=== PATIENT | male | born 1950 | race Caucasian/White ===

== ENCOUNTER → 2018-10-10 | Outpatient (CLI) | payer MEDICARE, OTHER | LOC: M RAD 16:27 | DX: M51.26 Other intervertebral disc displacement, lumbar region (principal); M51.27 Other intervertebral disc displacement, lumbosacral region; M48.061 Spinal stenosis, lumbar region without neurogenic claudication | CPT/HCPCS: 72131 ==

== ENCOUNTER → 2021-07-21 | Outpatient (REF) | payer MEDICARE, OTHER ==
[2021-07-21 18:04] LABS: INR 2.56; PROTHROMBIN TIME 27.9 SECONDS (12.7-14.5)
== END ==
LOC: M LAB REF 16:15
PROVIDERS: ATTEND Internal Medicine
DX: Z79.01 Long term (current) use of anticoagulants (principal); I25.3 Aneurysm of heart

== ENCOUNTER 2021-09-15 12:43 | Outpatient (RCR) | payer MEDICARE, OTHER | END 2021-09-21 | LOC: M ST 12:43 | PROVIDERS: ATTEND Internal Medicine | DX: R13.10 Dysphagia, unspecified (principal) ==

== ENCOUNTER → 2021-10-10 | Outpatient (CLI) | payer MEDICARE, OTHER ==
[~2021-10-10] MED LIST: BARIUM SULFATE 700 MG TABLET (E-Z-DISK) As Ordered ONE; E-Z-PAQUE 96% w/w SUSP 176GM BTL As Ordered ONE; VARIBAR NECTAR 40% w/v 240ML SUSP BTL As Ordered ONE; VARIBAR PUDDING 40% w/v 230ML TUBE As Ordered ONE
--- NOTE | 2021-10-10 13:46 | REP ---
INDICATION: DYSPHGIA. UNSPECIFIED. COMPARISON: None. TECHNIQUE: The procedure was performed by BEHZAD Gallegos, under the direct supervision of Dr. Begum. The procedure was performed with Darlene Sommer and Alisia Andrade from speech pathology present. 5 ml aliquots of thin and nectar consistency barium was administered. FINDINGS: The patient was able to successfully swallow both consistencies of barium. Penetration without aspiration was seen on both consistencies. The detailed report of this examination will be provided by speech pathology. IMPRESSION: Penetration without aspiration was seen on both consistencies of barium were swallowed during this examination. Please see detailed report from speech pathology for further evaluation. 1.1 minutes of fluoroscopy time was utilized for this procedure. Some fluoroscopic images are performed with last image hold technology. These images require no additional radiation <Electronically signed by Shante Weber > 10/10/21 1315 <Electronically signed by Devon Begum > 10/10/21 [id number]
== END ==
LOC: M RAD 11:11
PROVIDERS: ATTEND Internal Medicine
DX: R13.12 Dysphagia, oropharyngeal phase (principal)

== ENCOUNTER 2021-10-20 10:34 | Outpatient (RCR) | payer MEDICARE, OTHER | END 2021-10-21 | LOC: M PT 10:34 | PROVIDERS: ATTEND Internal Medicine | DX: M54.2 Cervicalgia (principal) ==

== ENCOUNTER → 2021-11-21 | Outpatient (RCR) | payer MEDICARE, OTHER | LOC: M PT 10-29 09:55 → M ST 10-31 10:29 → M PT 10-31 10:29 → M ST 11-07 10:32 → M PT 11-11 10:00 → M ST 11-12 15:00 → M PT 11-13 13:30 → M ST 12:45 | PROVIDERS: ATTEND Internal Medicine | DX: M54.2 Cervicalgia (principal) ==

== ENCOUNTER 2021-12-19 10:07 | Outpatient (RCR) | payer MEDICARE, OTHER | END 2021-12-22 | LOC: M PT 10:07 | PROVIDERS: ATTEND Internal Medicine | DX: M54.2 Cervicalgia (principal) ==

== ENCOUNTER 2022-01-08 12:00 | Outpatient (RCR) | payer MEDICARE, OTHER | END 2022-01-19 | LOC: M ST 12:00 | PROVIDERS: ATTEND Internal Medicine | DX: M54.2 Cervicalgia (principal) ==

== ENCOUNTER → 2022-01-19 | Outpatient (CLI) | payer MEDICARE, OTHER | LOC: M RAD 10:57 | PROVIDERS: ATTEND Internal Medicine | DX: R13.12 Dysphagia, oropharyngeal phase (principal) ==

== ENCOUNTER 2022-01-22 12:09 | Outpatient (RCR) | payer MEDICARE, OTHER | END 2022-02-19 | LOC: M ST 12:09 | PROVIDERS: ATTEND Internal Medicine | DX: M54.2 Cervicalgia (principal) ==

== ENCOUNTER → 2022-03-13 | Outpatient (CLI) | payer MEDICARE, OTHER ==
[2022-03-13 10:16] LABS: INR 1.18; PROTHROMBIN TIME 15.4 SECONDS (12.7-14.5)
[2022-03-13 10:17] LABS: PARTIAL THROMBOPLASTIN TIME 33.1 SECONDS (25.9-37.0)
[2022-03-13 10:34] LABS: ALBUMIN 3.8 GM/DL (3.2-5.2); ALT/SGPT 359 U/L (12-78); BILIRUBIN,DIRECT 0.2 MG/DL (0.0-0.2); BILIRUBIN,TOTAL 0.5 MG/DL (0.2-1.0); FERRITIN 349 NG/ML (26-388); IRON (FE) 79 UG/DL (65-175); PERCENT SATURATION 20.8 % (19.7-50.0); TOTAL IRON BINDING CAPACITY 380 UG/DL (250-450)
[2022-03-13 10:35] LABS: HEPATITIS B SURFACE ANTIBODY NEGATIVE (POSITIVE)
[2022-03-13 10:46] LABS: HEPATITIS B SURFACE ANTIGEN NEGATIVE (NEGATIVE)
[2022-03-13 11:14] LABS: HEPATITIS C VIRUS ABY INDEX 0.1 INDEX (<0.8)
[2022-03-14 19:11] LABS: ALPHA 1 ANTITRYPSIN 181 mg/dL (101-187); ANTI-MITOCHONDRIAL ANTIBODY <20.0 Units (0.0-20.0); ANTINUCLEAR ANTIBODIES DIRECT Negative (Negative); CERULOPLASMIN 27.3 mg/dL (16.0-31.0); HEPATITIS A IgG TOTAL Positive (Negative); LIVER-KIDNEY MICROSOMAL ABY <20.1 Units (0.0-20.0); TISSUE TRANSGLUTAMINASE IgA <2 U/mL (0-3)
== END ==
LOC: M RAD 08:40
PROVIDERS: ATTEND Nurse Practitioner Family
DX: R94.5 Abnormal results of liver function studies (principal); Z79.899 Other long term (current) drug therapy

== ENCOUNTER → 2022-03-27 | Outpatient (CLI) | payer MEDICARE, OTHER ==
[2022-03-27 14:08] LABS: ALBUMIN 3.6 GM/DL (3.2-5.2); BILIRUBIN,DIRECT 0.2 MG/DL (0.0-0.2); BILIRUBIN,TOTAL 0.4 MG/DL (0.2-1.0); TOTAL PROTEIN 7.8 GM/DL (6.4-8.2)
== END ==
LOC: M LAB 12:23
PROVIDERS: ATTEND Nurse Practitioner Family
DX: R13.10 Dysphagia, unspecified (principal); R94.5 Abnormal results of liver function studies

== ENCOUNTER → 2022-04-10 | Outpatient (CLI) | payer MEDICARE, OTHER ==
[2022-04-10 15:21] LABS: ALBUMIN 3.5 GM/DL (3.2-5.2); BILIRUBIN,DIRECT 0.1 MG/DL (0.0-0.2); BILIRUBIN,TOTAL 0.5 MG/DL (0.2-1.0); TOTAL PROTEIN 7.9 GM/DL (6.4-8.2)
== END ==
LOC: M LAB 14:09
PROVIDERS: ATTEND Nurse Practitioner Family
DX: R94.5 Abnormal results of liver function studies (principal)

== ENCOUNTER → 2022-05-14 | Outpatient (CLI) | payer MEDICARE, OTHER ==
[2022-05-14 15:29] LABS: ALBUMIN 3.3 GM/DL (3.2-5.2); BILIRUBIN,DIRECT 0.1 MG/DL (0.0-0.2); BILIRUBIN,TOTAL 0.3 MG/DL (0.2-1.0); TOTAL PROTEIN 7.3 GM/DL (6.4-8.2)
== END ==
LOC: M LAB 14:41
PROVIDERS: ATTEND Internal Medicine Gastroenterology
DX: K59.00 Constipation, unspecified (principal)

== ENCOUNTER → 2022-05-27 | Outpatient (CLI) | payer MEDICARE, OTHER ==
[2022-05-27 14:24] LABS: BLOOD UREA NITROGEN 13 MG/DL (7-18); CREATININE FOR GFR 1.25 MG/DL (0.70-1.30); GLOMERULAR FILTRATION RATE > 60.0 (>42)
== END ==
LOC: M LAB 13:08
PROVIDERS: ATTEND Urology
DX: D41.01 Neoplasm of uncertain behavior of right kidney (principal)

== ENCOUNTER → 2022-09-30 | Outpatient (CLI) | payer MEDICARE, OTHER ==
[2022-09-30 10:57] LABS: ALBUMIN 3.7 GM/DL (3.2-5.2); BILIRUBIN,DIRECT 0.2 MG/DL (0.0-0.2); BILIRUBIN,TOTAL 0.5 MG/DL (0.2-1.0); TOTAL PROTEIN 8.1 GM/DL (6.4-8.2)
== END ==
LOC: M RAD 08:09
PROVIDERS: ATTEND Internal Medicine Gastroenterology
DX: K21.9 Gastro-esophageal reflux disease without esophagitis (principal); N28.9 Disorder of kidney and ureter, unspecified; K82.9 Disease of gallbladder, unspecified

== ENCOUNTER → 2022-12-23 | Outpatient (CLI) | payer MEDICARE, OTHER ==
[2022-12-23 11:48] LABS: CREATININE FOR GFR 1.87 MG/DL (0.70-1.30); GLOMERULAR FILTRATION RATE 37.9 (>42)
== END ==
LOC: M LAB 10:43
PROVIDERS: ATTEND Urology
DX: R31.29 Other microscopic hematuria (principal)

== ENCOUNTER → 2023-01-21 | Outpatient (CLI) | payer MEDICARE, OTHER | LOC: M PLAIMG 11:27 | PROVIDERS: ATTEND Pain Medicine Pain Medicine | DX: M54.50 Low back pain, unspecified (principal) ==

== ENCOUNTER → 2023-09-16 | Outpatient (CLI) | payer MEDICARE, OTHER ==
[2023-09-17 23:07] LABS: PSA TOTAL 0.6 ng/mL (0.0-4.0)
== END ==
LOC: M LAB 12:34
PROVIDERS: ATTEND Urology
DX: N40.1 Benign prostatic hyperplasia with lower urinary tract symptoms (principal); D40.0 Neoplasm of uncertain behavior of prostate

== ENCOUNTER → 2023-11-05 | Outpatient (CLI) | payer MEDICARE, OTHER ==
[2023-11-05 12:30] LABS: CREATININE FOR GFR 1.61 MG/DL (0.70-1.30); GLOMERULAR FILTRATION RATE 44.9 (>42); POTASSIUM SERUM 4.9 MMOL/L (3.5-5.1)
== END ==
LOC: M LAB 11:22
PROVIDERS: ATTEND Internal Medicine Cardiovascular Disease
DX: I48.0 Paroxysmal atrial fibrillation (principal)

== ENCOUNTER → 2024-06-06 | Outpatient (CLI) | payer MEDICARE, OTHER | LOC: M RAD 13:40 | PROVIDERS: ATTEND Nurse Practitioner Family | DX: M48.10 Ankylosing hyperostosis [Forestier], site unspecified (principal); M51.36 Other intervertebral disc degeneration, lumbar region; M48.062 Spinal stenosis, lumbar region with neurogenic claudication ==

== ENCOUNTER → 2024-06-06 | Outpatient (CLI) | payer MEDICARE, OTHER ==
[2024-06-06 15:17] LABS: FREE T4 1.36 NG/DL (0.89-1.76); THYROID STIMULATING HORMONE 4.805 uIU/ML (0.55-4.78)
== END ==
LOC: M LAB 13:42
PROVIDERS: ATTEND Internal Medicine
DX: E03.9 Hypothyroidism, unspecified (principal)

== ENCOUNTER → 2024-09-29 | Outpatient (CLI) | payer MEDICARE, OTHER ==
[~2024-09-29] MED LIST changes: -BARIUM SULFATE 700 MG TABLET (E-Z-DISK) As Ordered ONE; -E-Z-PAQUE 96% w/w SUSP 176GM BTL As Ordered ONE; +ISOVUE-370 76% 100ML VIAL As Ordered ONE; -VARIBAR NECTAR 40% w/v 240ML SUSP BTL As Ordered ONE; -VARIBAR PUDDING 40% w/v 230ML TUBE As Ordered ONE
== END ==
LOC: M RAD 10:32
PROVIDERS: ATTEND Nurse Practitioner Family
DX: D41.01 Neoplasm of uncertain behavior of right kidney (principal); K42.9 Umbilical hernia without obstruction or gangrene; K57.30 Diverticulosis of large intestine without perforation or abscess without bleeding
CPT/HCPCS: 74177; Q9967

== ENCOUNTER 2025-05-31 15:44 | Emergency (ER) | payer MEDICARE, OTHER ==
[~2025-05-31] VITALS: Ht 170.2 cm; Wt 93.7 kg
[2025-05-31 15:48] VITALS: BP 103/57; TEMP 97.2; O2SAT 95
[2025-05-31] MEDS ORDERED: TAMS1CAP17 (15:59)
[2025-05-31] MEDS ORDERED: LEVO25CA2 (15:59)
[2025-05-31] MEDS ORDERED: ELIQ5TAB (15:59)
[2025-05-31] MEDS ORDERED: LEVO50TA5 (15:59)
[2025-05-31] MEDS ORDERED: FINA5TAB2 (15:59)
[2025-05-31] MEDS ORDERED: ENTR1TAB7 (15:59)
[2025-05-31] MEDS ORDERED: METO1TAB7 (15:59)
[2025-05-31] MEDS ORDERED: AMIO200T54 (15:59)
[2025-05-31] MEDS ORDERED: ATOR40TA75 (15:59)
[2025-05-31] MEDS ORDERED: TRAM50TA2 (15:59)
[2025-05-31 16:57] LABS: BASO # 0.0 10^3/uL (0.0-0.2); BASO % 0.4 % (0.0-1.0); EOS # 0.3 10^3/uL (0.0-0.5); EOS % 2.7 % (0.0-3.0); LYMPH # 1.1 10^3/uL (1.5-5.0); LYMPH % 10.7 % (24.0-44.0); MONO # 0.8 10^3/uL (0.0-0.8); MONO % 7.6 % (2.0-8.0); NEUTROPHILS # 7.8 10^3/uL (1.5-8.5); NEUTROPHILS % 78.1 % (36.0-66.0); PLATELET COUNT, AUTOMATED 196 10^3/uL (150-450)
[2025-05-31 17:24] LABS: ALT/SGPT 20.0 U/L (7.0-40); AST/SGOT 19.0 U/L (<34); CALCIUM LEVEL 9.3 MG/DL (8.3-10.6); CARBON DIOXIDE LEVEL 29.0 MMOL/L (20-31); CHLORIDE LEVEL 107.0 MMOL/L (98-107); CREATININE FOR GFR 1.65 MG/DL (0.70-1.30); GLOMERULAR FILTRATION RATE 43.0 (>42); POTASSIUM SERUM 5.9 MMOL/L (3.5-5.1); SODIUM LEVEL 144.0 MMOL/L (136-145)
== END 2025-05-31 19:41 | disposition left against medical advice (07) ==
LOC: M ED 15:44
DX: Z53.21 Procedure and treatment not carried out due to patient leaving prior to being seen by health care provider (principal)

== ENCOUNTER → 2025-07-19 | Outpatient (CLI) | payer MEDICARE, OTHER ==
[~2025-07-19] MED LIST changes: +AMIO200T54; +ATOR40TA75; +ELIQ5TAB; +ENTR1TAB7; +FINA5TAB2; -ISOVUE-370 76% 100ML VIAL As Ordered ONE; +LEVO25CA2; +LEVO50TA5; +METO1TAB7; +TAMS1CAP17; +TRAM50TA2
== END ==
LOC: M PLAIMG 08:13
PROVIDERS: ATTEND Pain Medicine Pain Medicine
DX: M48.062 Spinal stenosis, lumbar region with neurogenic claudication (principal); M47.26 Other spondylosis with radiculopathy, lumbar region; M51.16 Intervertebral disc disorders with radiculopathy, lumbar region